=== PATIENT | female | born 1970 | race Caucasian/White ===

== ENCOUNTER → 2022-08-04 11:46 | Outpatient (CLI) | payer BC, SELFPAY ==
--- NOTE | 2022-08-04 11:48 | DI.RAD.S_ITS ---
PROCEDURE: XR ANKLE RT MIN 3V INDICATIONS: Ankle pain TECHNIQUE: 3 views of the ankle were acquired. COMPARISON: None. FINDINGS: Bones: No fractures or dislocations. Ankle mortise is normally aligned. No suspicious bony lesions. Exam is mildly limited by overlying bandage which contains metallic fibers. Soft tissues: No tibiotalar joint effusion. Achilles tendon appears normal. IMPRESSION: No fracture identified. Dictated by: Julius Lawton M.D. on 08/04/2022 at 13:02 Approved by: Julius Lawton M.D. on 08/04/2022 at 13:04
--- NOTE | 2022-08-04 11:48 | DI.RAD.S_ITS ---
PROCEDURE: XR FOOT RT MIN 3V INDICATIONS: Foot pain TECHNIQUE: 3 views of the foot were acquired. COMPARISON: None. FINDINGS: Bones: No fractures or dislocations. No suspicious bony lesions. There is some limitation of 5 bony detail due to an overlying wrap with metallic fibers. Soft tissues: No tibiotalar joint effusion. Achilles tendon appears normal. IMPRESSION: No fracture identified. The exam is mildly limited due to an overlying wrap. Dictated by: Julius Lawton M.D. on 08/04/2022 at 13:00 Approved by: Julius Lawton M.D. on 08/04/2022 at 13:02
== END ==
PROVIDERS: Referring Provider Nurse Practitioner Family; Visit Provider Nurse Practitioner Family
DX: M25.571 Pain in right ankle and joints of right foot (principal)
CPT/HCPCS: 73610; 73630